=== PATIENT | male | born 1985 | race Caucasian/White ===

== ENCOUNTER 2021-11-07 09:01 | Emergency (ER) | payer MEDICARE, OTHER ==
[2021-11-07 09:12] VITALS: BP 131/94; PULSE 78; TEMP 98.1; BMI 36.8
[2021-11-07] MEDS ORDERED: NAPROXEN 500 MG TABLET PO ONE (09:46)
[2021-11-07] MEDS ORDERED: NAPROXEN 500 MG TABLET ONE (09:54)
== END 2021-11-07 10:22 | disposition home or self-care (01) ==
LOC: FER 09:01
DX: M79.644 Pain in right finger(s) (principal)
CPT/HCPCS: 73130-TC-RT-FY; 99283-25